=== PATIENT | female | born 1940 | race Caucasian/White ===

== ENCOUNTER 2016-12-20 06:15 | Inpatient (IN) | payer OTHER, MEDICARE ==
[~2016-12-20] VITALS: Ht 170.2 cm; Wt 84.8 kg
[~2016-12-20 06:15] MED LIST: AMLODIPINE BESY10 MG PO; B COMPLEX #11 EACH PO; DAILY VITE1 EAC1 PO; GEMFIBROZIL600 MG PO; GLUCOSAMINE CH1 EACH PO; KLOR-CON M2020 MEQ PO; LEVEMIR100 UNIT/2 SC; LEVOTHYROXINE112 MCG PO; LEVOTHYROXINE150 MCG PO; LISINOPRIL40 MG PO; METFORMIN HCL1000 MG PO; METOPROLOL SUCC50 MG PO; NOVOLOG 10100 UNITS/ SC; OMEGA-31000 M1 PO; VITAMIN C500 M1 PO; ZINC30 MG PO; [UNRECOGNIZED DRUG - OTHER] PO
[2016-12-20 07:01] LABS: EOSINOPHIL (%) 2.4 % (0-5); EOSINOPHIL COUNT 0.3 K/uL (0-0.3); HEMATOCRIT 38.5 % (36.0-46.0); IMMATURE GRANULOCYTE (%) 0.4 % (0.0-0.7); IMMATURE GRANULOCYTE COUNT 0.1 K/uL; LYMPHOCYTE COUNT 1.2 K/uL (1.0-2.8); MCH 30.5 PG (29.0-34.0); MCHC 32.7 G/DL (30.0-36.0); MCV 93.2 FL (83-99); MEAN PLAT.VOLUME 10.4 uM^3 (9.5-12.4); MONOCYTE (%) 5.8 % (3-12); MONOCYTE COUNT 0.8 K/uL (0-0.8); NEUTROPHIL (%) 82.3 % (45-76); PLATELET COUNT 282 K/uL (156-360); RBC DIS.WIDTH-SD 43.8 % (39-53); RED BLOOD COUNT 4.13 M/uL (3.80-5.20); WHITE BLOOD COUNT 13.4 K/uL (4.1-10.2)
[2016-12-20 07:30] LABS: ANION GAP 7 MEQ/L (2-14); CHLORIDE 99 MEQ/L (99-109); POTASSIUM 4.7 MEQ/L (3.7-5.4); SAMPLE HEMOLYSIS CHECK 0; SAMPLE ICTERIC CHECK 0; SAMPLE LIPEMIA CHECK 0; SODIUM 132 MEQ/L (136-147)
[2016-12-20 07:36] LABS: GFR ESTIMATE (CALCULATED) 47 mL/min/; GLUCOSE 353 mg/dL (70-99); UREA NITROGEN (BUN) 19 mg/dL (9-23)
[2016-12-20 07:40] LABS: TROP-I INTERPRETATION NEGATIVE
[2016-12-20] MEDS ORDERED: FENOFIBRATE160 M1 PO (08:11)
[2016-12-20] MEDS ORDERED: TRESIBA FL100 UNIT/1 SC ×2 (08:15→08:16)
[2016-12-20 09:56] VITALS: BP 162/68
[2016-12-20 10:06] VITALS: BP 162/68
[2016-12-20] MEDS ORDERED: METOPROLOL TART50 MG PO (13:56)
[2016-12-20] MEDS ORDERED: ATORVASTATIN CA80 MG PO (13:58)
[2016-12-20] MEDS ORDERED: CILOSTAZOL50 MG PO (13:59)
[2016-12-20 14:46] LABS: TROP-I INTERPRETATION POSITIVE; TROPONIN-I 2.32 ng/mL (0.0-0.30)
[2016-12-20 15:31] LABS: PROTHROMBIN TIME 11.2 SEC (10.2-12.9)
[2016-12-20 15:34] LABS: PTT 30.7 SEC (25-37)
[2016-12-20 19:00] VITALS: BP 160/72
[2016-12-20 19:19] LABS: TROP-I INTERPRETATION POSITIVE; TROPONIN-I 3.69 ng/mL (0.0-0.30)
[2016-12-20 21:20] LABS: POINT-OF-CARE METER ID UU13113781
[2016-12-20 23:00] VITALS: BP 166/68
[2016-12-21 04:00] VITALS: BP 139/63
[2016-12-21 04:48] LABS: HEMATOCRIT 33.3 % (36.0-46.0); MCH 30.4 PG (29.0-34.0); MCHC 33.3 G/DL (30.0-36.0); MCV 91.2 FL (83-99); MEAN PLAT.VOLUME 10.2 uM^3 (9.5-12.4); PLATELET COUNT 265 K/uL (156-360); RBC DIS.WIDTH-CV 12.9 % (11.8-14.6); RBC DIS.WIDTH-SD 42.8 % (39-53); RED BLOOD COUNT 3.65 M/uL (3.80-5.20); WHITE BLOOD COUNT 9.6 K/uL (4.1-10.2)
[2016-12-21 07:27] VITALS: BP 171/73
[2016-12-21 07:47] LABS: POINT-OF-CARE METER ID UU14174216
[2016-12-21 09:45] LABS: ANION GAP 12 MEQ/L (2-14); CHLORIDE 98 MEQ/L (99-109); GFR ESTIMATE (CALCULATED) 43 mL/min/; POTASSIUM 4.1 MEQ/L (3.7-5.4); SAMPLE HEMOLYSIS CHECK 0; SAMPLE ICTERIC CHECK 0; SAMPLE LIPEMIA CHECK 0; UREA NITROGEN (BUN) 23 mg/dL (9-23)
[2016-12-21 09:48] LABS: GLUCOSE 125 mg/dL (70-99); SODIUM 139 MEQ/L (136-147); TROP-I INTERPRETATION POSITIVE; TROPONIN-I 2.65 ng/mL (0.0-0.30)
[2016-12-21 12:03] VITALS: BP 163/70
[2016-12-21 17:00] VITALS: BP 134/63
[2016-12-21 19:00] VITALS: BP 126/59
[2016-12-21 21:44] LABS: POINT-OF-CARE METER ID UU14314088
[2016-12-21 23:00] VITALS: BP 113/57
[2016-12-22 04:30] VITALS: BP 188/76
[2016-12-22 06:01] LABS: ANION GAP 10 MEQ/L (2-14); CHLORIDE 99 MEQ/L (99-109); GFR ESTIMATE (CALCULATED) 33 mL/min/; GLUCOSE 138 mg/dL (70-99); HDL CHOLESTEROL 59 MG/DL (Desirable>=50); LDL CHOLESTEROL 70 mg/dL (Desirable<100); NON-HDL CHOLESTEROL 95 mg/dL (Desirable<160); SAMPLE HEMOLYSIS CHECK 0; SAMPLE ICTERIC CHECK 0; SAMPLE LIPEMIA CHECK 0; SODIUM 137 MEQ/L (136-147); TOTAL CHOLESTEROL 154 mg/dL (Desirable<200); TRIGLYCERIDES 125 MG/DL (Normal: <150); UREA NITROGEN (BUN) 32 mg/dL (9-23)
[2016-12-22 07:00] VITALS: BP 176/74
[2016-12-22 07:25] LABS: Estimated Average Glucose 214 mg/dL (70-123); HEMOGLOBIN A1c (GLYCOHEMOGLOB) 9.1 % HGB (Below 5.7)
[2016-12-22 07:51] LABS: POINT-OF-CARE METER ID UU13113781
[2016-12-22 08:53] LABS: POINT-OF-CARE METER ID UU13113696
[2016-12-22 11:06] LABS: POINT-OF-CARE METER ID UU14314088
[2016-12-22 11:23] VITALS: BP 139/63
[2016-12-22 15:13] LABS: ANION GAP 11 MEQ/L (2-14); CHLORIDE 100 MEQ/L (99-109); GFR ESTIMATE (CALCULATED) 43 mL/min/; GLUCOSE 126 mg/dL (70-99); POTASSIUM 4.1 MEQ/L (3.7-5.4); SAMPLE HEMOLYSIS CHECK 0; SAMPLE ICTERIC CHECK 0; SAMPLE LIPEMIA CHECK 0; SODIUM 136 MEQ/L (136-147); UREA NITROGEN (BUN) 27 mg/dL (9-23)
[2016-12-22 15:25] VITALS: BP 169/72
[2016-12-22 19:36] VITALS: BP 152/70
[2016-12-22 20:55] LABS: POINT-OF-CARE METER ID UU13113698
[2016-12-22 23:02] VITALS: BP 128/61
[2016-12-23 05:19] VITALS: BP 165/75
[2016-12-23 05:53] LABS: HEMATOCRIT 32.8 % (36.0-46.0); MCH 30.4 PG (29.0-34.0); MCHC 32.6 G/DL (30.0-36.0); MCV 93.2 FL (83-99); MEAN PLAT.VOLUME 10.6 uM^3 (9.5-12.4); PLATELET COUNT 265 K/uL (156-360); RBC DIS.WIDTH-CV 13.2 % (11.8-14.6); RBC DIS.WIDTH-SD 44.7 % (39-53); RED BLOOD COUNT 3.52 M/uL (3.80-5.20)
[2016-12-23 07:03] LABS: ANION GAP 8 MEQ/L (2-14); CHLORIDE 99 MEQ/L (99-109); GFR ESTIMATE (CALCULATED) 43 mL/min/; POTASSIUM 4.3 MEQ/L (3.7-5.4); SAMPLE HEMOLYSIS CHECK 0; SAMPLE ICTERIC CHECK 0; SAMPLE LIPEMIA CHECK 0; SODIUM 131 MEQ/L (136-147); UREA NITROGEN (BUN) 28 mg/dL (9-23)
[2016-12-23 07:08] LABS: GLUCOSE 249 mg/dL (70-99)
[2016-12-23 07:40] LABS: POINT-OF-CARE METER ID UU14174216
[2016-12-23 09:00] VITALS: BP 139/65
[2016-12-23] MEDS ORDERED: CLOPIDOGREL75 MG PO (11:02)
[2016-12-23] MEDS ORDERED: ASPIR-LOW81 MG PO (11:03)
[2016-12-23] MEDS ORDERED: FUROSEMIDE40 MG PO (11:03)
== END 2016-12-23 13:30 | disposition home or self-care (01) | DRG 280 ==
LOC: EME 06:15 → 4EAST 08:24 → EDOF 08:24 → ENRESERV 08:25 → EDOF 08:34 → 4EAST 09:50
PROVIDERS: Emergency Medicine; Family Medicine; Internal Medicine; Internal Medicine Cardiovascular Disease
PROC: B2111ZZ Fluoroscopy of Multiple Coronary Arteries using Low Osmolar Contrast (ICD-10-PCS; principal; 2016-12-22)
PROC: 4A023N7 Measurement of Cardiac Sampling and Pressure, Left Heart, Percutaneous Approach (ICD-10-PCS; principal; 2016-12-22)
PROC: B2181ZZ Fluoroscopy of Left Internal Mammary Bypass Graft using Low Osmolar Contrast (ICD-10-PCS; principal; 2016-12-22)
PROC: B2131ZZ Fluoroscopy of Multiple Coronary Artery Bypass Grafts using Low Osmolar Contrast (ICD-10-PCS; principal; 2016-12-22)
PROC: B3101ZZ Fluoroscopy of Thoracic Aorta using Low Osmolar Contrast (ICD-10-PCS; principal; 2016-12-22)
DX: I21.4 Non-ST elevation (NSTEMI) myocardial infarction (principal); I11.0 Hypertensive heart disease with heart failure; I50.9 Heart failure, unspecified; J96.01 Acute respiratory failure with hypoxia; E87.1 Hypo-osmolality and hyponatremia; N17.9 Acute kidney failure, unspecified; T50.2X5A Adverse effect of carbonic-anhydrase inhibitors, benzothiadiazides and other diuretics, initial encounter; I25.810 Atherosclerosis of coronary artery bypass graft(s) without angina pectoris; I25.10 Atherosclerotic heart disease of native coronary artery without angina pectoris; E03.9 Hypothyroidism, unspecified; E78.5 Hyperlipidemia, unspecified; E11.65 Type 2 diabetes mellitus with hyperglycemia; I27.20 Pulmonary hypertension, unspecified; I35.0 Nonrheumatic aortic (valve) stenosis; I73.9 Peripheral vascular disease, unspecified; K21.9 Gastro-esophageal reflux disease without esophagitis; E66.3 Overweight; Z79.4 Long term (current) use of insulin; Z23 Encounter for immunization; Z95.1 Presence of aortocoronary bypass graft; Z68.31 Body mass index [BMI] 31.0-31.9, adult
CPT/HCPCS: 71010; 71275; 80048; 80048 91; 80061; 82948; 83036; 83880; 84484; 85025; 85027; 85379; 85610; 85730; 90686; 93005; 93306; 94640; 94799; 99281; 99285; C1750; C1769; C1887; J1644; J1815; J1940; J2250; J3010; J7030

== ENCOUNTER 2017-03-02 04:57 | Inpatient (IN) | payer OTHER, MEDICARE ==
[~2017-03-02] VITALS: Ht 170.2 cm; Wt 87.7 kg
[~2017-03-02 04:57] MED LIST changes: +ASPIR-LOW81 MG PO; +ATORVASTATIN CA80 MG PO; +CALMAG THINS T1 EACH PO; +CILOSTAZOL50 MG PO; +CLOPIDOGREL75 MG PO; +FENOFIBRATE160 M1 PO; +FUROSEMIDE40 MG PO; +METOPROLOL TAR100 MG PO; +TRESIBA FL200 UNIT/1 SC; -[UNRECOGNIZED DRUG - OTHER] PO
[2017-03-02] MEDS ORDERED: HUMALOG100 UNIT/1 SC (05:39)
[2017-03-02 05:45] LABS: BASOPHIL (%) 0.4 % (0-1); BASOPHIL COUNT 0.1 K/uL (0-0.1); EOSINOPHIL (%) 2.4 % (0-5); EOSINOPHIL COUNT 0.3 K/uL (0-0.3); HEMATOCRIT 33.3 % (36.0-46.0); HEMOGLOBIN 10.5 G/DL (11.9-15.5); IMMATURE GRANULOCYTE (%) 0.4 % (0.0-0.7); LYMPHOCYTE (%) 6.6 % (15-42); LYMPHOCYTE COUNT 0.9 K/uL (1.0-2.8); MCH 29.8 PG (29.0-34.0); MCHC 31.5 G/DL (30.0-36.0); MCV 94.6 FL (83-99); MONOCYTE (%) 4.9 % (3-12); MONOCYTE COUNT 0.7 K/uL (0-0.8); NEUTROPHIL (%) 85.3 % (45-76); NEUTROPHIL COUNT 11.9 K/uL (1.8-6.4); PLATELET COUNT 364 K/uL (156-360); RBC DIS.WIDTH-CV 14.9 % (11.8-14.6); RBC DIS.WIDTH-SD 51.1 % (39-53); RED BLOOD COUNT 3.52 M/uL (3.80-5.20)
[2017-03-02 05:46] LABS: CHLORIDE 101 mEq/L (99-109); POTASSIUM 4.4 mEq/L (3.7-5.4); SODIUM 136 mEq/L (136-147)
[2017-03-02 05:48] LABS: GLUCOSE 298 mg/dL (70-99)
[2017-03-02 05:52] LABS: CREATININE 1.4 mg/dL (0.6-1.3); GFR ESTIMATE (CALCULATED) 39 mL/min/; UREA NITROGEN (BUN) 39 mg/dL (9-23)
[2017-03-02 05:59] LABS: TROP-I INTERPRETATION NEGATIVE; TROPONIN-I 0.02 ng/mL (0.0-0.30)
[2017-03-02 06:31] LABS: BASE EXCESS 2.9 mEq/L (-3 to +3); BICARBONATE 27.9 mEq/L (22-26); CARBOXY HGB 1.7 % (0-5); COMMENTS - BLOOD GASES A+C+; DEVICE NCH; METHEMOGLOBIN 0.7 % (0-1.5); O2 FLOW 8 L/MIN; PCO2 44 mm Hg (35-45); PO2 55 mm Hg (80-100); SITE RR; TOTAL RESP RATE 24 resp/min; pH 7.41 (7.35-7.45)
[2017-03-02 09:28] LABS: THYROTROPIN (TSH) 0.68 MIU/L (0.4-5.5)
[2017-03-02] MEDS ORDERED: ASPIR-LOW81 MG PO (09:41)
[2017-03-02] MEDS ORDERED: PROAIR HFA8.5 GM IH (09:42)
[2017-03-02] MEDS ORDERED: ALBUTEROL2.5 MG/3 M IH (09:42)
[2017-03-02] MEDS ORDERED: CILOSTAZOL50 MG PO (09:43)
[2017-03-02 12:37] LABS: TROP-I INTERPRETATION NEGATIVE; TROPONIN-I 0.04 ng/mL (0.0-0.30)
[2017-03-02 16:01] VITALS: BP 137/68
[2017-03-02 18:20] LABS: TROP-I INTERPRETATION NEGATIVE; TROPONIN-I 0.05 ng/mL (0.0-0.30)
[2017-03-02 19:44] VITALS: BP 145/72
[2017-03-02 23:52] VITALS: BP 113/53
[2017-03-03 03:48] VITALS: BP 127/60
[2017-03-03 05:28] LABS: HEMATOCRIT 31.9 % (36.0-46.0); HEMOGLOBIN 9.8 G/DL (11.9-15.5); MCH 29.5 PG (29.0-34.0); MCHC 30.7 G/DL (30.0-36.0); MCV 96.1 FL (83-99); PLATELET COUNT 310 K/uL (156-360); RBC DIS.WIDTH-CV 14.9 % (11.8-14.6); RBC DIS.WIDTH-SD 52.4 % (39-53); RED BLOOD COUNT 3.32 M/uL (3.80-5.20); WHITE BLOOD COUNT 8.3 K/uL (4.1-10.2)
[2017-03-03 05:46] LABS: CHLORIDE 101 MEQ/L (99-109); CREATININE 1.4 MG/DL (0.6-1.3); GFR ESTIMATE (CALCULATED) 39 mL/min/; POTASSIUM 4.2 MEQ/L (3.7-5.4); SODIUM 139 MEQ/L (136-147); UREA NITROGEN (BUN) 32 mg/dL (9-23)
[2017-03-03 05:54] LABS: GLUCOSE ND mg/dL (70-99)
[2017-03-03 07:12] LABS: GLUCOSE 87 mg/dL (70-99)
[2017-03-03 07:52] VITALS: BP 147/64
[2017-03-03 11:50] VITALS: BP 122/58
[2017-03-03 17:36] VITALS: BP 146/65
[2017-03-03 20:37] VITALS: BP 145/66
[2017-03-03 22:48] VITALS: BP 119/81
[2017-03-04 04:14] VITALS: BP 107/53
[2017-03-04 05:45] LABS: HEMATOCRIT 32.7 % (36.0-46.0); HEMOGLOBIN 10.1 G/DL (11.9-15.5); MCH 29.8 PG (29.0-34.0); MCHC 30.9 G/DL (30.0-36.0); MCV 96.5 FL (83-99); PLATELET COUNT 309 K/uL (156-360); RBC DIS.WIDTH-CV 14.9 % (11.8-14.6); RBC DIS.WIDTH-SD 52.7 % (39-53); RED BLOOD COUNT 3.39 M/uL (3.80-5.20); WHITE BLOOD COUNT 9.2 K/uL (4.1-10.2)
[2017-03-04 06:05] LABS: CHLORIDE 100 MEQ/L (99-109); CREATININE 1.6 MG/DL (0.6-1.3); GFR ESTIMATE (CALCULATED) 33 mL/min/; GLUCOSE 66 mg/dL (70-99); POTASSIUM 4.4 MEQ/L (3.7-5.4); SODIUM 137 MEQ/L (136-147); UREA NITROGEN (BUN) 35 mg/dL (9-23)
[2017-03-04 09:00] VITALS: BP 141/63
[2017-03-04 12:00] VITALS: BP 139/63
[2017-03-04 16:00] VITALS: BP 144/65
[2017-03-04 21:09] VITALS: BP 129/60
[2017-03-04 23:34] VITALS: BP 117/54
[2017-03-05 03:22] VITALS: BP 128/69
[2017-03-05 05:07] LABS: HEMOGLOBIN 9.3 G/DL (11.9-15.5); MCH 29.4 PG (29.0-34.0); MCV 94.9 FL (83-99); PLATELET COUNT 290 K/uL (156-360); RBC DIS.WIDTH-CV 14.7 % (11.8-14.6); RBC DIS.WIDTH-SD 51.5 % (39-53); RED BLOOD COUNT 3.16 M/uL (3.80-5.20); WHITE BLOOD COUNT 7.9 K/uL (4.1-10.2)
[2017-03-05 05:34] LABS: CHLORIDE 97 MEQ/L (99-109); CREATININE 1.5 MG/DL (0.6-1.3); GFR ESTIMATE (CALCULATED) 36 mL/min/; POTASSIUM 4.1 MEQ/L (3.7-5.4); SODIUM 134 MEQ/L (136-147); UREA NITROGEN (BUN) 34 mg/dL (9-23)
[2017-03-05 05:35] LABS: GLUCOSE 122 mg/dL (70-99)
[2017-03-05 08:00] VITALS: BP 146/66
[2017-03-05] MEDS ORDERED: LISINOPRIL20 MG PO (10:58)
[2017-03-05] MEDS ORDERED: LASIX40 MG PO (11:08)
[2017-03-05 11:29] VITALS: BP 129/72
[2017-03-05 16:00] VITALS: BP 130/68
[2017-03-05 19:34] VITALS: BP 140/66
[2017-03-05 23:24] VITALS: BP 95/52
[2017-03-06 00:36] VITALS: BP 122/58
[2017-03-06 03:42] VITALS: BP 119/63
[2017-03-06 06:33] LABS: HEMATOCRIT 29.6 % (36.0-46.0); HEMOGLOBIN 9.2 G/DL (11.9-15.5); MCH 28.9 PG (29.0-34.0); MCHC 31.1 G/DL (30.0-36.0); MCV 93.1 FL (83-99); PLATELET COUNT 273 K/uL (156-360); RBC DIS.WIDTH-CV 14.4 % (11.8-14.6); RBC DIS.WIDTH-SD 49.7 % (39-53); RED BLOOD COUNT 3.18 M/uL (3.80-5.20); WHITE BLOOD COUNT 5.7 K/uL (4.1-10.2)
[2017-03-06 07:07] LABS: CHLORIDE 98 MEQ/L (99-109); CREATININE 1.6 MG/DL (0.6-1.3); GFR ESTIMATE (CALCULATED) 33 mL/min/; GLUCOSE 113 mg/dL (70-99); POTASSIUM 4.3 MEQ/L (3.7-5.4); SODIUM 132 MEQ/L (136-147); UREA NITROGEN (BUN) 41 mg/dL (9-23)
[2017-03-06] MEDS ORDERED: LEVAQUIN750 MG PO (07:56)
[2017-03-06 08:00] VITALS: BP 119/71
[2017-03-07] MEDS ORDERED: PLAVIX75 MG PO (11:50)
== END 2017-03-06 12:41 | disposition home health service (06) | DRG 291 ==
LOC: EME → EDSEX 04:57 → EDBD 04:57 → 4EAST 08:03 → EDOF 08:03 → ENRESERV 08:10 → CANRESERV 11:49 → ENRESERV 11:53 → 4EAST 15:36
PROVIDERS: Emergency Medicine; Internal Medicine; Internal Medicine Cardiovascular Disease; Internal Medicine Pulmonary Disease
DX: I13.0 Hypertensive heart and chronic kidney disease with heart failure and stage 1 through stage 4 chronic kidney disease, or unspecified chronic kidney disease (principal); I50.23 Acute on chronic systolic (congestive) heart failure; J96.01 Acute respiratory failure with hypoxia; J18.9 Pneumonia, unspecified organism; N17.9 Acute kidney failure, unspecified; E11.22 Type 2 diabetes mellitus with diabetic chronic kidney disease; N18.4 Chronic kidney disease, stage 4 (severe); E11.649 Type 2 diabetes mellitus with hypoglycemia without coma; T38.3X5A Adverse effect of insulin and oral hypoglycemic [antidiabetic] drugs, initial encounter; I27.20 Pulmonary hypertension, unspecified; I08.0 Rheumatic disorders of both mitral and aortic valves; J98.11 Atelectasis; I25.810 Atherosclerosis of coronary artery bypass graft(s) without angina pectoris; D63.8 Anemia in other chronic diseases classified elsewhere; E78.5 Hyperlipidemia, unspecified; K21.9 Gastro-esophageal reflux disease without esophagitis; E03.9 Hypothyroidism, unspecified; I25.2 Old myocardial infarction; Z79.4 Long term (current) use of insulin
CPT/HCPCS: 36600; 71045; 80048; 81003; 82803; 82948; 83605; 83880; 84443; 84484; 84999; 85025; 85027; 87040; 87070; 87205; 87449; 87502; 93005; 94002; 94640; 94640 76; 94799; 99202; 99281; 99284; J0456; J0696; J1644; J1815; J1940; J1956

== ENCOUNTER 2017-03-07 06:15 | Emergency (ER) | payer OTHER, MEDICARE ==
[~2017-03-07] VITALS: Ht 157.5 cm; Wt 85.1 kg
[~2017-03-07 06:15] MED LIST changes: +ALBUTEROL2.5 MG/3 M IH; +HUMALOG100 UNIT/1 SC; +LASIX40 MG PO; +LEVAQUIN750 MG PO; +LISINOPRIL20 MG PO; +PROAIR HFA8.5 GM IH
[2017-03-07 06:42] LABS: BASE EXCESS 0.9 mEq/L (-3 to +3); BICARBONATE 29.4 mEq/L (22-26); CARBOXY HGB 1.6 % (0-5); COMMENTS - BLOOD GASES C+A+; DEVICE VENTILATOR; FI02 100 %; MECHANICAL RATE 16 resp/min; METHEMOGLOBIN 0.4 % (0-1.5); MODE A/C; PCO2 67 mm Hg (35-45); PEEP 5 CM/H20; PO2 91 mm Hg (80-100); SITE RR; TIDAL VOLUME 450 ML; TOTAL RESP RATE 16 resp/min
[2017-03-07 06:43] LABS: pH 7.25 (7.35-7.45)
[2017-03-07 06:58] LABS: APPEARANCE SL.HAZY ((CLEAR)); BILIRUBIN NEGATIVE; BLOOD NEGATIVE; GLUCOSE (STRIP) 50; KETONES NEGATIVE; LEUKOCYTES NEGATIVE; NITRITE NEGATIVE; PROTEIN (STRIP) >=500; UROBILINOGEN 0.2 MG/DL (0.2-1.0)
[2017-03-07 06:59] LABS: COLOR YELLOW ((YELLOW))
[2017-03-07 07:04] LABS: BACTERIA RARE /HPF; EPITHELIAL CELLS RARE /HPF; HYALINE CASTS TNTC /LPF; MUCUS TRACE /LPF; RED BLOOD CELLS 0-5 /HPF (0-5); UCUL ADDED? NO; WHITE BLOOD CELLS 0-5 /HPF (0-5)
[2017-03-07 07:35] LABS: PTT 30.7 SEC (25-37)
[2017-03-07 08:01] LABS: TROP-I INTERPRETATION NEGATIVE; TROPONIN-I 0.02 ng/mL (0.0-0.30)
[2017-03-07 08:02] LABS: HEMATOCRIT 36.1 % (36.0-46.0); HEMOGLOBIN 11.3 G/DL (11.9-15.5); MCH 29.7 PG (29.0-34.0); MCHC 31.3 G/DL (30.0-36.0); RBC DIS.WIDTH-CV 14.7 % (11.8-14.6); RBC DIS.WIDTH-SD 51.2 % (39-53); WHITE BLOOD COUNT 18.6 K/uL (4.1-10.2)
[2017-03-07 08:04] LABS: CHLORIDE 102 MEQ/L (99-109); CREATININE 1.4 MG/DL (0.6-1.3); GFR ESTIMATE (CALCULATED) 39 mL/min/; MAGNESIUM 2.3 mg/dl (1.3-2.7); POTASSIUM 4.8 MEQ/L (3.7-5.4); SODIUM 136 MEQ/L (136-147); UREA NITROGEN (BUN) 43 mg/dL (9-23)
[2017-03-07 08:08] LABS: GLUCOSE 194 mg/dL (70-99)
[2017-03-07 08:35] LABS: BASOPHIL (%) 0.2 % (0-1); EOSINOPHIL COUNT 0.2 K/uL (0-0.3); HEMATOLOGY COMMENT 1 SMEAR COMPATIBLE; IMMATURE GRANULOCYTE (%) 0.8 % (0.0-0.7); LYMPHOCYTE (%) 2.5 % (15-42); LYMPHOCYTE COUNT 0.5 K/uL (1.0-2.8); MONOCYTE (%) 5.9 % (3-12); MONOCYTE COUNT 1.1 K/uL (0-0.8); NEUTROPHIL (%) 89.6 % (45-76); NEUTROPHIL COUNT 16.7 K/uL (1.8-6.4); PLAT.SUFFICIENCY ADEQUATE; PLATELET COUNT 303 K/uL (156-360)
[2017-03-07 09:39] LABS: BASE EXCESS 5.6 mEq/L (-3 to +3); BICARBONATE 30.5 mEq/L (22-26); CARBOXY HGB 1.1 % (0-5); METHEMOGLOBIN 0.9 % (0-1.5)
[2017-03-07 09:40] LABS: COMMENTS - BLOOD GASES A+C+; DEVICE VENT; FI02 90 %; MECHANICAL RATE 18 resp/min; MODE AC; PCO2 46 mm Hg (35-45); PEEP 7 CM/H20; PO2 120 mm Hg (80-100); SITE LR; TIDAL VOLUME 500 ML; TOTAL RESP RATE 18 resp/min; pH 7.43 (7.35-7.45)
[2017-03-07] MEDS ORDERED: PLAVIX75 MG PO (11:50)
[2017-03-07 18:10] VITALS: BP 154/59
== END 2017-03-07 19:00 | disposition short-term general hospital (02) ==
LOC: EME → EDBD 06:15 → EME 06:15
PROVIDERS: Emergency Medicine
PROC: 0BH17EZ Insertion of Endotracheal Airway into Trachea, Via Natural or Artificial Opening (ICD-10-PCS; principal; 2017-03-07)
DX: J96.01 Acute respiratory failure with hypoxia (principal); J18.9 Pneumonia, unspecified organism; J90 Pleural effusion, not elsewhere classified; I35.0 Nonrheumatic aortic (valve) stenosis; K21.9 Gastro-esophageal reflux disease without esophagitis; I10 Essential (primary) hypertension; E11.9 Type 2 diabetes mellitus without complications; Z95.1 Presence of aortocoronary bypass graft; Z79.82 Long term (current) use of aspirin; Z79.4 Long term (current) use of insulin; Z99.81 Dependence on supplemental oxygen
CPT/HCPCS: 36600; 71045; 71275; 80048; 81003; 82803; 82948; 83605; 83735; 83880; 84484; 85025; 85610; 85730; 87040; 87070; 87205; 87502; 93005; 94002; 99281; 99285; J0692; J1940; J1956; J2704

== ENCOUNTER 2017-03-21 15:09 | Inpatient (IN) | payer OTHER, MEDICARE ==
[~2017-03-21] VITALS: Ht 170.2 cm; Wt 79.3 kg
[~2017-03-21 15:09] MED LIST changes: +PLAVIX75 MG PO
[2017-03-21 15:59] LABS: BASOPHIL (%) 0.2 % (0-1); EOSINOPHIL (%) 1.4 % (0-5); EOSINOPHIL COUNT 0.3 K/uL (0-0.3); HEMATOCRIT 32.3 % (36.0-46.0); HEMOGLOBIN 10.7 G/DL (11.9-15.5); IMMATURE GRANULOCYTE (%) 0.5 % (0.0-0.7); LYMPHOCYTE (%) 4.6 % (15-42); LYMPHOCYTE COUNT 1.1 K/uL (1.0-2.8); MCH 30.1 PG (29.0-34.0); MCHC 33.1 G/DL (30.0-36.0); MONOCYTE (%) 4.7 % (3-12); MONOCYTE COUNT 1.1 K/uL (0-0.8); NEUTROPHIL (%) 88.6 % (45-76); NEUTROPHIL COUNT 20.5 K/uL (1.8-6.4); PLATELET COUNT 325 K/uL (156-360); RBC DIS.WIDTH-CV 14.6 % (11.8-14.6); RBC DIS.WIDTH-SD 48.7 % (39-53); RED BLOOD COUNT 3.55 M/uL (3.80-5.20); WHITE BLOOD COUNT 23.1 K/uL (4.1-10.2)
[2017-03-21 16:06] LABS: ALBUMIN 3.6 g/dL (3.2-4.8); CHLORIDE 103 mEq/L (99-109); POTASSIUM 4.9 mEq/L (3.7-5.4); SODIUM 136 mEq/L (136-147)
[2017-03-21 16:08] LABS: GLUCOSE 95 mg/dL (70-99); TOTAL PROTEIN 7.4 g/dL (6.4-8.3)
[2017-03-21 16:10] LABS: TOTAL BILIRUBIN 0.5 mg/dL (0.0-1.0)
[2017-03-21 16:12] LABS: ALKALINE PHOSPHATASE 47 IU/L (3-129); CREATININE 1.5 mg/dL (0.6-1.3); GFR ESTIMATE (CALCULATED) 36 mL/min/
[2017-03-21 16:13] LABS: UREA NITROGEN (BUN) 29 mg/dL (9-23)
[2017-03-21 16:14] LABS: AST (GOT) 25 IU/L (2-34)
[2017-03-21 16:15] LABS: ALT (GPT) 18 IU/L (3-49)
[2017-03-21 16:21] LABS: TROP-I INTERPRETATION INDETERMINATE; TROPONIN-I 0.34 ng/mL (0.0-0.30)
[2017-03-21] MEDS ORDERED: LOPRESSOR25 MG PO (18:20)
[2017-03-21] MEDS ORDERED: KLOR-CON M2020 MEQ PO (18:21)
[2017-03-21] MEDS ORDERED: GLUCOPHAGE1000 MG PO (18:21)
[2017-03-21] MEDS ORDERED: TYLENOL REGULA325 MG PO (18:22)
[2017-03-21] MEDS ORDERED: VITAMIN D31000 UNI2 PO (18:22)
[2017-03-21 19:22] LABS: APPEARANCE CLEAR ((CLEAR)); BILIRUBIN NEGATIVE; BLOOD NEGATIVE; COLOR YELLOW ((YELLOW)); GLUCOSE (STRIP) NEGATIVE; KETONES NEGATIVE; LEUKOCYTES NEGATIVE; NITRITE NEGATIVE; PROTEIN (STRIP) 100; SPECIFIC GRAVITY 1.012 (1.000-1.030); UROBILINOGEN 0.2 MG/DL (0.2-1.0)
[2017-03-21 19:25] LABS: BACTERIA NONE SEEN /HPF; EPITHELIAL CELLS RARE /HPF; HYALINE CASTS 0-5 /LPF; MUCUS NONE SEEN /LPF; RED BLOOD CELLS 0-5 /HPF (0-5); UCUL ADDED? NO; WHITE BLOOD CELLS 0-5 /HPF (0-5)
[2017-03-22 06:49] LABS: HEMATOCRIT 29.3 % (36.0-46.0); HEMOGLOBIN 9.4 G/DL (11.9-15.5); MCH 29.8 PG (29.0-34.0); MCHC 32.1 G/DL (30.0-36.0); PLATELET COUNT 274 K/uL (156-360); RBC DIS.WIDTH-CV 14.8 % (11.8-14.6); RBC DIS.WIDTH-SD 50.4 % (39-53); RED BLOOD COUNT 3.15 M/uL (3.80-5.20); WHITE BLOOD COUNT 19.3 K/uL (4.1-10.2)
[2017-03-22 06:52] LABS: TROP-I INTERPRETATION NEGATIVE; TROPONIN-I 0.24 ng/mL (0.0-0.30)
[2017-03-22 07:25] LABS: HDL CHOLESTEROL 32 MG/DL (Desirable>=50); LDL CHOLESTEROL 85 mg/dL (Desirable<100); NON-HDL CHOLESTEROL 107 mg/dL (Desirable<160); TOTAL CHOLESTEROL 139 mg/dL (Desirable<200); TRIGLYCERIDES 111 MG/DL (Normal: <150)
[2017-03-22 09:56] LABS: HEMOGLOBIN A1c (GLYCOHEMOGLOB) 7.2 % (Below 5.7)
[2017-03-22 12:07] LABS: TROP-I INTERPRETATION NEGATIVE
[2017-03-22 18:18] VITALS: BP 157/69
[2017-03-23] VITALS (7 sets, daily range): BP systolic 138–162; BP diastolic 63–74
[2017-03-23 11:49] LABS: BASOPHIL (%) 0.4 % (0-1); EOSINOPHIL COUNT 1.2 K/uL (0-0.3); HEMATOCRIT 27.1 % (36.0-46.0); IMMATURE GRANULOCYTE (%) 0.4 % (0.0-0.7); LYMPHOCYTE (%) 12.1 % (15-42); LYMPHOCYTE COUNT 1.2 K/uL (1.0-2.8); MCH 30.1 PG (29.0-34.0); MCHC 33.2 G/DL (30.0-36.0); MCV 90.6 FL (83-99); MONOCYTE (%) 8.3 % (3-12); MONOCYTE COUNT 0.8 K/uL (0-0.8); NEUTROPHIL (%) 66.8 % (45-76); NEUTROPHIL COUNT 6.4 K/uL (1.8-6.4); PLATELET COUNT 257 K/uL (156-360); RBC DIS.WIDTH-CV 14.6 % (11.8-14.6); RBC DIS.WIDTH-SD 48.7 % (39-53); RED BLOOD COUNT 2.99 M/uL (3.80-5.20); WHITE BLOOD COUNT 9.6 K/uL (4.1-10.2)
[2017-03-24 04:02] VITALS: BP 133/73
[2017-03-24 07:14] VITALS: BP 133/74
[2017-03-24 07:45] LABS: HEMATOCRIT 28.8 % (36.0-46.0); HEMOGLOBIN 9.4 G/DL (11.9-15.5); MCH 29.6 PG (29.0-34.0); MCHC 32.6 G/DL (30.0-36.0); MCV 90.6 FL (83-99); PLATELET COUNT 278 K/uL (156-360); RBC DIS.WIDTH-CV 14.5 % (11.8-14.6); RBC DIS.WIDTH-SD 48.5 % (39-53); RED BLOOD COUNT 3.18 M/uL (3.80-5.20); WHITE BLOOD COUNT 8.5 K/uL (4.1-10.2)
[2017-03-24 08:10] LABS: CHLORIDE 100 MEQ/L (99-109); CREATININE 1.4 MG/DL (0.6-1.3); GFR ESTIMATE (CALCULATED) 39 mL/min/; GLUCOSE 138 mg/dL (70-99); POTASSIUM 4.5 MEQ/L (3.7-5.4); SODIUM 134 MEQ/L (136-147); UREA NITROGEN (BUN) 34 mg/dL (9-23)
[2017-03-24 15:05] VITALS: BP 153/67
[2017-03-25 00:17] VITALS: BP 156/62
[2017-03-25 08:08] VITALS: BP 175/72
== END 2017-03-25 11:58 | disposition home or self-care (01) | DRG 64 ==
LOC: EME 15:09 → EDOF 03-22 01:35 → 5SOUTH 03-22 01:35 → ENRESERV 03-22 01:36 → EDOF 03-22 15:46 → ENRESERV 03-22 15:48 → 5SOUTH 03-22 17:53 → ENPENDDIS 03-25 10:30 → 5SOUTH 03-25 11:58
PROVIDERS: Family Medicine; Hospitalist; Internal Medicine Infectious Disease; Physician Assistant; Physician Assistant Medical
DX: I63.113 Cerebral infarction due to embolism of bilateral vertebral arteries (principal); J96.90 Respiratory failure, unspecified, unspecified whether with hypoxia or hypercapnia; I76 Septic arterial embolism; E78.5 Hyperlipidemia, unspecified; I35.0 Nonrheumatic aortic (valve) stenosis; I27.20 Pulmonary hypertension, unspecified; I25.10 Atherosclerotic heart disease of native coronary artery without angina pectoris; J18.9 Pneumonia, unspecified organism; N18.9 Chronic kidney disease, unspecified; I63.40 Cerebral infarction due to embolism of unspecified cerebral artery; E11.22 Type 2 diabetes mellitus with diabetic chronic kidney disease; E03.9 Hypothyroidism, unspecified; E11.51 Type 2 diabetes mellitus with diabetic peripheral angiopathy without gangrene; H53.2 Diplopia; R47.01 Aphasia; D64.9 Anemia, unspecified; R56.9 Unspecified convulsions; K21.9 Gastro-esophageal reflux disease without esophagitis; J98.11 Atelectasis; I12.9 Hypertensive chronic kidney disease with stage 1 through stage 4 chronic kidney disease, or unspecified chronic kidney disease; R29.700 NIHSS score 0; Z95.2 Presence of prosthetic heart valve; Z95.1 Presence of aortocoronary bypass graft; Z90.710 Acquired absence of both cervix and uterus; Z86.73 Personal history of transient ischemic attack (TIA), and cerebral infarction without residual deficits; Z79.899 Other long term (current) drug therapy; Z79.82 Long term (current) use of aspirin; Z79.4 Long term (current) use of insulin; Z79.02 Long term (current) use of antithrombotics/antiplatelets; I25.2 Old myocardial infarction
CPT/HCPCS: 70450; 70551; 71045; 80048; 80053; 80061; 81003; 82948; 83036; 83605; 84484; 85025; 85027; 87040; 93005; 93306; 99281; 99285; J0692; J1644; J1815; J3370

== ENCOUNTER 2017-04-21 14:57 | Inpatient (IN) | payer OTHER, MEDICARE ==
[~2017-04-21] VITALS: Ht 170.2 cm; Wt 78.9 kg
[~2017-04-21 14:57] MED LIST changes: +GLUCOPHAGE1000 MG PO; +LOPRESSOR25 MG PO; +TYLENOL REGULA325 MG PO; +VITAMIN D31000 UNI2 PO
[2017-04-21 15:26] LABS: HEMATOCRIT 34.5 % (36.0-46.0); HEMOGLOBIN 11.3 G/DL (11.9-15.5); MCH 30.1 PG (29.0-34.0); MCHC 32.8 G/DL (30.0-36.0); MCV 91.8 FL (83-99); PLATELET COUNT 340 K/uL (156-360); RBC DIS.WIDTH-CV 15.3 % (11.8-14.6); RBC DIS.WIDTH-SD 51.8 % (39-53); RED BLOOD COUNT 3.76 M/uL (3.80-5.20); WHITE BLOOD COUNT 10.2 K/uL (4.1-10.2)
[2017-04-21 15:34] LABS: CHLORIDE 99 mEq/L (99-109); POTASSIUM 4.5 mEq/L (3.7-5.4); SODIUM 136 mEq/L (136-147)
[2017-04-21 15:36] LABS: GLUCOSE 236 mg/dL (70-99)
[2017-04-21 15:40] LABS: CREATININE 1.6 mg/dL (0.6-1.3); GFR ESTIMATE (CALCULATED) 33 mL/min/
[2017-04-21 15:41] LABS: UREA NITROGEN (BUN) 27 mg/dL (9-23)
[2017-04-21 19:06] LABS: TROP-I INTERPRETATION NEGATIVE; TROPONIN-I 0.07 ng/mL (0.0-0.30)
[2017-04-21 20:43] LABS: ALBUMIN 3.7 g/dL (3.2-4.8)
[2017-04-21] MEDS ORDERED: ALBUTEROL2.5 MG/3 M IH (20:43)
[2017-04-21 20:44] LABS: MAGNESIUM 1.8 mg/dL (1.3-2.7)
[2017-04-21 20:46] LABS: TOTAL PROTEIN 7.6 g/dL (6.4-8.3)
[2017-04-21 20:48] LABS: TOTAL BILIRUBIN 0.3 mg/dL (0.0-1.0)
[2017-04-21 20:49] LABS: ALKALINE PHOSPHATASE 50 IU/L (3-129)
[2017-04-21] MEDS ORDERED: LIPITOR80 MG PO (20:49)
[2017-04-21 20:51] LABS: AST (GOT) 25 IU/L (2-34)
[2017-04-21 20:52] LABS: ALT (GPT) 19 IU/L (3-49); DIRECT BILIRUBIN 0.1 mg/dL (0.0-0.3)
[2017-04-21] MEDS ORDERED: LASIX40 MG PO (20:52)
[2017-04-21 22:27] VITALS: BP 143/67
[2017-04-22] VITALS: BP 127/67
[2017-04-22 07:33] LABS: CHLORIDE 100 MEQ/L (99-109); CREATININE 1.4 MG/DL (0.6-1.3); GFR ESTIMATE (CALCULATED) 39 mL/min/; MAGNESIUM 1.7 mg/dl (1.3-2.7); SODIUM 137 MEQ/L (136-147); THYROTROPIN (TSH) 0.32 MIU/L (0.4-5.5); UREA NITROGEN (BUN) 26 mg/dL (9-23)
[2017-04-22 07:36] LABS: GLUCOSE 115 mg/dL (70-99)
[2017-04-22 08:57] VITALS: BP 140/63
[2017-04-22 11:13] VITALS: BP 149/67
[2017-04-22 15:47] VITALS: BP 141/65
[2017-04-22 20:01] VITALS: BP 156/70
[2017-04-22 23:26] VITALS: BP 128/89
[2017-04-23 03:41] VITALS: BP 147/58
[2017-04-23 06:38] LABS: CHLORIDE 101 MEQ/L (99-109); CREATININE 1.5 MG/DL (0.6-1.3); GFR ESTIMATE (CALCULATED) 36 mL/min/; POTASSIUM 4.2 MEQ/L (3.7-5.4); SODIUM 137 MEQ/L (136-147); UREA NITROGEN (BUN) 28 mg/dL (9-23)
[2017-04-23 06:40] LABS: GLUCOSE 82 mg/dL (70-99)
[2017-04-23 07:27] VITALS: BP 157/69
[2017-04-23 11:14] VITALS: BP 161/70
[2017-04-23 15:53] VITALS: BP 152/77
[2017-04-23 20:30] VITALS: BP 170/74
[2017-04-23 23:41] VITALS: BP 129/58
[2017-04-24 04:00] VITALS: BP 135/61
[2017-04-24 09:00] VITALS: BP 151/67
[2017-04-24 09:37] LABS: CHLORIDE 101 MEQ/L (99-109); CREATININE 1.4 MG/DL (0.6-1.3); GFR ESTIMATE (CALCULATED) 39 mL/min/; GLUCOSE 84 mg/dL (70-99); POTASSIUM 4.3 MEQ/L (3.7-5.4); SODIUM 136 MEQ/L (136-147); UREA NITROGEN (BUN) 27 mg/dL (9-23)
[2017-04-24 12:11] VITALS: BP 143/64
== END 2017-04-24 15:56 | disposition home or self-care (01) | DRG 292 ==
LOC: EME 14:57 → EDOF 20:16 → 5WEST 20:16 → ENRESERV 20:18 → 5WEST 22:06
PROVIDERS: Emergency Medicine; Hospitalist; Internal Medicine; Internal Medicine Cardiovascular Disease; Physician Assistant Medical
DX: I50.42 Chronic combined systolic (congestive) and diastolic (congestive) heart failure (principal); J98.11 Atelectasis; E11.22 Type 2 diabetes mellitus with diabetic chronic kidney disease; I25.10 Atherosclerotic heart disease of native coronary artery without angina pectoris; K21.9 Gastro-esophageal reflux disease without esophagitis; R09.02 Hypoxemia; I13.0 Hypertensive heart and chronic kidney disease with heart failure and stage 1 through stage 4 chronic kidney disease, or unspecified chronic kidney disease; N18.3 Chronic kidney disease, stage 3 (moderate); E03.9 Hypothyroidism, unspecified; I27.20 Pulmonary hypertension, unspecified; E11.65 Type 2 diabetes mellitus with hyperglycemia; I35.0 Nonrheumatic aortic (valve) stenosis; E78.5 Hyperlipidemia, unspecified; I25.2 Old myocardial infarction; Z95.3 Presence of xenogenic heart valve; Z90.710 Acquired absence of both cervix and uterus; Z86.73 Personal history of transient ischemic attack (TIA), and cerebral infarction without residual deficits; Z79.899 Other long term (current) drug therapy; Z79.4 Long term (current) use of insulin
CPT/HCPCS: 71046; 80048; 80076; 82948; 83735; 83880; 84443; 84484; 85027; 93005; 93970; 94799; 99281; 99285; G0378; J1644; J1815; J1940